=== PATIENT | female | born 1990 | race Caucasian/White ===

== ENCOUNTER 2021-12-31 18:02 | Emergency (ER) | payer OTHER ==
[2021-12-31] MEDS ORDERED: Morphine 4 MG/ML VIAL ONE (19:38)
[2021-12-31] MEDS ORDERED: Lorazepam 1 MG TAB ONE (19:38)
[2021-12-31] MEDS ORDERED: Ondansetron PF 4 MG/2 ML Vial ONE ×3 (19:38→20:50)
[2021-12-31 20:28] LABS: Amphetamine Not Detected (NotDetected); Barbiturates Screen Not Detected (NotDetected); Benzodiazepine Screen Not Detected (NotDetected); Cocaine Metabolite Screen Not Detected (NotDetected); Methadone Not Detected (NotDetected); Methamphetamine Not Detected (NotDetected); Opiate Screen Not Detected (NotDetected); Oxycodone Screen Not Detected (NotDetected); Phencyclidine (PCP) Not Detected (NotDetected); THC/Cannabinoid Screen Detected (NotDetected); Tricyclic Screen Not Detected (NotDetected)
[2021-12-31] MEDS ORDERED: PROPOFOL 20 ML ONE (20:42)
[2021-12-31] MEDS ORDERED: Midazolam HCl 2 mg/2 ml Vial ONE (20:43)
[2021-12-31] MEDS ORDERED: Fentanyl 100 MCG/2 ML VIAL ONE ×2 (20:43→22:24)
[2021-12-31] MEDS ORDERED: EPINEPHrine 1 MG/ML AMP ONE (20:44)
[2021-12-31] MEDS ORDERED: Bupivacaine PF 0.5% 30 ML VIAL ONE (20:44)
[2021-12-31] MEDS ORDERED: Lidocaine 1% PF 5 ML VIAL ONE ×2 (20:50)
[2021-12-31] MEDS ORDERED: Succinylcholine 200 MG/10 ml SYRINGE FS ONE (20:50)
[2021-12-31] MEDS ORDERED: Dexamethasone 4 mg/ml Vial ONE ×2 (20:50)
[2021-12-31] MEDS ORDERED: Rocuronium Bromide 10 MG/ML (10ML VIAL) ONE ×2 (20:50)
[2021-12-31] MEDS ORDERED: Glycopyrrolate 0.2 MG/ML 5 ML SYRINGE ONE (21:50)
[2021-12-31] MEDS ORDERED: SUGAMMADEX SODIUM 200 MG/2 ML VIAL ONE (22:39)
[2021-12-31] MEDS ORDERED: Meperidine HCl/PF 25 MG/ML VIAL ONE (22:51)
== END 2021-12-31 21:26 | disposition home or self-care (01) ==
LOC: CSHERS 18:02
DX: O20.9 Hemorrhage in early pregnancy, unspecified (principal); Z87.891 Personal history of nicotine dependence; Z3A.12 12 weeks gestation of pregnancy
CPT/HCPCS: 80306; 96374; 96375; J0171; J1100; J2175; J2250; J2270; J2405; J2704; J3010; S0020

== ENCOUNTER 2022-11-20 06:44 | Emergency (ER) | payer OTHER | END 2022-11-20 07:45 | disposition home or self-care (01) | LOC: CSHERS 06:44 | DX: K04.7 Periapical abscess without sinus (principal); F17.200 Nicotine dependence, unspecified, uncomplicated | CPT/HCPCS: 99282 ==

== ENCOUNTER 2025-06-21 15:53 | Emergency (ER) | payer SELFPAY ==
[2025-06-21 17:05] LABS: #Basophils Less than 0.03 10x3/uL (0.0-0.2); #Eosinophils 0.07 10x3/uL (0.0-0.5); #Monocytes 0.40 10x3/uL (0.0-1.1); #Neutrophils 3.24 10x3/uL (1.5-8.4); %Basophils 0.4 % (0.0-2.0); %Eosinophils 1.3 % (0.0-6.0); %Lymphocytes 32.4 % (18.0-47.0); %Monocytes 7.2 % (0.0-10.0); %Neutrophils 58.5 % (40.0-75.0); Hematocrit 32.5 % (34.9-44.5); Hemoglobin 11.3 g/dL (12.0-15.5); Mean Corpuscular Hemoglobin 31.1 pg (27.0-33.0); Mean Corpuscular Volume 89.5 fL (81.6-98.3); Platelet Count 309 10x3/uL (150-450); Red Blood Cell (RBC) Count 3.63 10x6/uL (3.90-5.03); White Blood Cell (WBC) Count 5.53 10x3/uL (3.5-10.5)
[2025-06-21 17:24] LABS: ALT (SGPT) 17 U/L (Less than 34); AST (SGOT) 20 U/L (11-34); Albumin 4.1 g/dL (3.1-4.5); Alkaline Phosphatase 62 U/L (40-110); Anion Gap 12 mmol/L (10-20); BUN (Urea Nitrogen) 12 mg/dL (7.0-18.7); Bilirubin, Total 0.6 mg/dL (0.3-1.2); Calc. Creatinine Clearance 0 mL/min (70-130); Calcium 9.2 mg/dL (7.8-10.44); Carbon Dioxide 24 mmol/L (22-29); Chloride 107 mmol/L (98-107); Globulin 2.9 g/dL (2.4-3.5); Glucose 90 mg/dL (70-105); Potassium 3.5 mmol/L (3.5-5.1); Sodium 139 mmol/L (136-145)
[2025-06-21 17:31] LABS: Troponin I 0.018 ng/mL (< 0.028)
== END 2025-06-21 18:39 | disposition home or self-care (01) ==
LOC: CSHERS 15:53
DX: R07.9 Chest pain, unspecified (principal); F17.290 Nicotine dependence, other tobacco product, uncomplicated
CPT/HCPCS: 71045; 80053; 84484; 85025; 93005

== ENCOUNTER 2025-09-16 12:52 | Emergency (ER) | payer SELFPAY ==
[2025-09-16] MEDS ORDERED: Benzonatate 100 MG CAP ONE (13:34)
[2025-09-16 13:37] LABS: #Basophils 0.04 10x3/uL (0.0-0.2); #Eosinophils 0.06 10x3/uL (0.0-0.5); #Monocytes 0.76 10x3/uL (0.0-1.1); #Neutrophils 6.52 10x3/uL (1.5-8.4); %Basophils 0.4 % (0.0-2.0); %Eosinophils 0.6 % (0.0-6.0); %Lymphocytes 27.1 % (18.0-47.0); %Monocytes 7.5 % (0.0-10.0); %Neutrophils 64.1 % (40.0-75.0); Hematocrit 36.8 % (34.9-44.5); Hemoglobin 12.6 g/dL (12.0-15.5); Mean Corpuscular Hemoglobin 30.4 pg (27.0-33.0); Mean Corpuscular Volume 88.7 fL (81.6-98.3); Platelet Count 380 10x3/uL (150-450); Red Blood Cell (RBC) Count 4.15 10x6/uL (3.90-5.03); White Blood Cell (WBC) Count 10.16 10x3/uL (3.5-10.5)
[2025-09-16 13:52] LABS: ALT (SGPT) 75 U/L (Less than 34); AST (SGOT) 29 U/L (11-34); Albumin 4.2 g/dL (3.1-4.5); Alkaline Phosphatase 108 U/L (40-110); Anion Gap 17 mmol/L (10-20); BUN (Urea Nitrogen) 19 mg/dL (7.0-18.7); Bilirubin, Total 0.7 mg/dL (0.3-1.2); Calc. Creatinine Clearance 0 mL/min (70-130); Calcium 9.6 mg/dL (7.8-10.44); Carbon Dioxide 20 mmol/L (22-29); Chloride 106 mmol/L (98-107); Globulin 3.7 g/dL (2.4-3.5); Glucose 93 mg/dL (70-105); Potassium 3.8 mmol/L (3.5-5.1); Sodium 139 mmol/L (136-145)
[2025-09-16 13:59] LABS: Troponin I Less than 0.010 ng/mL (< 0.028)
[2025-09-16 14:04] LABS: BHCG - Serum Negative (NEGATIVE); Pregs Control Background? CLEAR/WHITE (CLR/WHITE); Pregs Control Bar Appear? YES (CONTROL BAR)
[2025-09-16] MEDS ORDERED: Iopamidol 370 76% 100 ML VIAL ONE (15:09)
== END 2025-09-16 15:08 | disposition home or self-care (01) ==
LOC: CSHERS 12:52
DX: J18.9 Pneumonia, unspecified organism (principal); F17.290 Nicotine dependence, other tobacco product, uncomplicated; Z86.73 Personal history of transient ischemic attack (TIA), and cerebral infarction without residual deficits
CPT/HCPCS: 71275; 80053; 83605; 83880; 84484; 84703; 85025; 93005; 94640; 96374; J2919; Q9967